=== PATIENT | male | born 1960 | race Two or more races ===

== ENCOUNTER 2022-07-26 18:23 | Inpatient (IN) | payer OTHER, MEDICARE, MEDICAID ==
[~2022-07-26] VITALS: Ht 172.7 cm; Wt 88.9 kg
[2022-07-26 20:12] LABS: BASOPHILS % (AUTO) 0.3 % (0.0-2.0); EOSINOPHILS % (AUTO) 0.5 % (1.0-6.0); HEMATOCRIT 43.3 % (41-53); HEMOGLOBIN 14.4 g/dL (13.5-17.5); LYMPHOCYTES % (AUTO) 18.8 % (22.0-44.0); MEAN CORPUSCULAR HEMOGLOBIN 32.3 pg (26.0-34.0); MEAN CORPUSCULAR HGB CONC 33.2 G/dL (31.0-37.0); MEAN CORPUSCULAR VOLUME 97 fL (80-100); MONOCYTES % (AUTO) 9.5 % (2.0-9.0); NEUTROPHILS # (AUTO) 7.5 K/uL (1.8-7.7); NEUTROPHILS % (AUTO) 70.9 % (40.0-70.0); PLATELET COUNT (AUTO) 258 K/uL (150-450); RED BLOOD CELL COUNT(AUTO) 4.46 MIL/uL (4.50-5.90); RED CELL DISTRIBUTION WIDTH 15.3 % (11.5-14.5)
[2022-07-26 20:19] LABS: ANION GAP 8 mmol/L (8-16); CALCIUM, TOTAL 9.6 mg/dL (8.8-10.5); CARBON DIOXIDE 30 mmol/L (22-29); CHLORIDE 101 mmol/L (98-107); CREATININE 0.95 mg/dL (0.60-1.30); GLUCOSE,RANDOM 103 mg/dL (70-110); POTASSIUM 3.8 mmol/L (3.5-5.1); SODIUM SERUM 139 mmol/L (136-145); UREA NITROGEN, BLOOD 8 mg/dL (7-18)
[2022-07-26 20:20] LABS: GLOMERULAR FILTR. RATE CALC > 60 mL/min (>60)
[2022-07-26 20:25] LABS: ALANINE AMINOTRANSFERASE 38 U/L (12-78); ALBUMIN 4.2 g/dL (3.4-5.0); ALKALINE PHOSPHATASE 84 U/L (46-116); ASPARTATE AMINOTRANSFERASE 32 U/L (15-37); BILIRUBIN,TOTAL 0.4 mg/dL (0.1-1.0); TOTAL PROTEIN, SERUM 8.3 g/dL (6.4-8.2)
[2022-07-26 20:31] LABS: COVID AG,FIA SOURCE NASOPHARYNGEAL
[2022-07-26 20:41] LABS: AMPHET/METH SCREEN,URINE NEGATIVE (NEGATIVE); BARBITURATE SCREEN, URINE NEGATIVE (NEGATIVE); BENZODIAZEPINES SCREEN,URINE NEGATIVE (NEGATIVE); CANNABINOID SCREEN,URINE POSITIVE (NEGATIVE); COCAINE SCREEN,URINE NEGATIVE (NEGATIVE); METHADONE SCREEN, URINE NEGATIVE (NEGATIVE); OPIATE SCREEN,URINE NEGATIVE (NEGATIVE)
[2022-07-26 21:05] LABS: PHENCYCLIDINE SCREEN,URINE NEGATIVE (NEGATIVE)
[2022-07-27] MEDS ORDERED: HALOPERIDOL 5 MG TABLET PO PRN (00:15)
[2022-07-27] MEDS ORDERED: ZOLPIDEM TARTRATE 10 MG TABLET PO PRN (00:15)
[2022-07-27] MEDS ORDERED: LORazepam 2 MG TABLET PO PRN (00:15)
[2022-07-27 01:30] VITALS: BP 131/64
[2022-07-27] MEDS ORDERED: PNEUMOCOCCAL VACCINE POLYVALENT 0.5 ML VIAL [PPSV23] IM. ONE (04:00)
[2022-07-27] MEDS: LOPERAMIDE HCL 2 MG CAPSULE PO PRN (06:41)
[2022-07-27 08:04] VITALS: BP 116/73
[2022-07-27] MEDS: LevETIRAcetam 500 MG TABLET PO SCH ×2 (11:49→16:06)
[2022-07-27 20:16] VITALS: BP 126/61
[2022-07-28 08:14] VITALS: BP 107/74
[2022-07-28] MEDS: LevETIRAcetam 500 MG TABLET PO SCH ×2 (08:43→16:16)
[2022-07-28 20:24] VITALS: BP 124/66
[2022-07-29] MEDS: LevETIRAcetam 500 MG TABLET PO SCH ×2 (08:32→16:38)
[2022-07-29 09:19] VITALS: BP 118/74
[2022-07-29] MEDS: LOPERAMIDE HCL 2 MG CAPSULE PO PRN (15:27)
[2022-07-29 20:03] VITALS: BP 120/79
[2022-07-29] MEDS: QUEtiapine FUMARATE 300 MG TABLET PO SCH (20:12)
[2022-07-30 09:06] VITALS: BP 114/73
[2022-07-30] MEDS: LevETIRAcetam 500 MG TABLET PO SCH ×2 (09:17→17:06)
[2022-07-30 16:32] VITALS: BP 114/77
[2022-07-30] MEDS: QUEtiapine FUMARATE 300 MG TABLET PO SCH (20:29)
[2022-07-31 08:30] VITALS: BP 90/60
[2022-07-31] MEDS: LevETIRAcetam 500 MG TABLET PO SCH ×2 (09:03→16:38)
[2022-07-31 16:30] VITALS: BP 120/77
[2022-07-31] MEDS: QUEtiapine FUMARATE 300 MG TABLET PO SCH (20:27)
[2022-08-01] MEDS ORDERED: ALBUTEROL SULFATE HFA 90 MCG/PUFF 8 GM INHALER IH PRN (06:15)
[2022-08-01] MEDS ORDERED: MAG HYDROX/AL HYDROX/SIMETH ES 30 ML SUSPENSION UDCUP PO PRN (06:15)
[2022-08-01] MEDS ORDERED: NICOTINE 14 MG/24 HOUR PATCH TD PRN (06:15)
[2022-08-01] MEDS ORDERED: PETROLATUM,WHITE 28 GM JELLY TP PRN (06:15)
[2022-08-01] MEDS ORDERED: MAGNESIUM HYDROXIDE SUSPENSION 30 ML UDCUP PO PRN (06:15)
[2022-08-01] MEDS ORDERED: LOPERAMIDE HCL 2 MG CAPSULE PO PRN (06:15)
[2022-08-01] MEDS ORDERED: GuaiFENesin/D-METHORPHAN [SUGAR-FREE] 200-20MG/10 ML SYRUP UDCUP PO PRN (06:15)
[2022-08-01] MEDS ORDERED: DOCUSATE SODIUM 100 MG CAPSULE PO PRN (06:15)
[2022-08-01] MEDS ORDERED: CloNIDine HCL 0.1 MG TABLET PO PRN (06:15)
[2022-08-01] MEDS ORDERED: ONDANSETRON HCL 4 MG TABLET PO PRN (06:15)
[2022-08-01] MEDS ORDERED: ACETAMINOPHEN 325 MG TABLET PO PRN (06:15)
[2022-08-01] MEDS ORDERED: IBUPROFEN 400 MG TABLET PO PRN (06:15)
[2022-08-01 08:00] VITALS: BP 110/79
[2022-08-01 08:06] LABS: COVID AG,FIA SOURCE NASAL SWAB
[2022-08-01] MEDS ORDERED: QUET300T19 PO (09:08)
[2022-08-01] MEDS ORDERED: LEVE500T8 PO (09:08)
[2022-08-01] MEDS: LevETIRAcetam 500 MG TABLET PO SCH ×2 (11:14→16:53)
[2022-08-01 16:00] VITALS: BP 116/81
== END 2022-08-01 17:00 | disposition home health service (06) | DRG 885 ==
LOC: EMS 18:23 → B2S 07-27 01:19 → 3EI 07-30 10:00
PROVIDERS: ADMIT Psychiatry & Neurology Psychiatry; ATTEND Psychiatry & Neurology Psychiatry
DX: F25.0 Schizoaffective disorder, bipolar type (principal); R45.851 Suicidal ideations; F10.10 Alcohol abuse, uncomplicated; F12.10 Cannabis abuse, uncomplicated; F17.200 Nicotine dependence, unspecified, uncomplicated; G47.33 Obstructive sleep apnea (adult) (pediatric); I10 Essential (primary) hypertension; I25.10 Atherosclerotic heart disease of native coronary artery without angina pectoris; F32.A Depression, unspecified; Z20.822 Contact with and (suspected) exposure to COVID-19; Z59.00 Homelessness unspecified; Z79.899 Other long term (current) drug therapy; Z86.73 Personal history of transient ischemic attack (TIA), and cerebral infarction without residual deficits
CPT/HCPCS: 80053; 85025; 90732; 94660; 99285; G0480